=== PATIENT | male | born 1995 | race American Indian/Alaskan Native ===

== ENCOUNTER 2018-03-17 13:35 | Emergency (ER) | payer OTHER ==
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
--- NOTE | 2018-03-17 22:12 | XRay Report ---
FINAL REPORT PROCEDURE: XR SPINE LUMBOSACRAL 2-3V TECHNIQUE: Lumbar spine radiographs, including AP, lateral, and lumbosacral spot views. CPT 41345 HISTORY: lower back pain COMPARISON: No prior studies are available for comparison. FINDINGS: Alignment: There is minimal dextroscoliosis. Vertebral body heights/Disk spaces: Normal. Fracture(s): None. Facets: Normal. Bone mineralization: Normal. IMPRESSION: No acute abnormality.
[2018-03-17 22:38] VITALS: BP 138/89
== END 2018-03-17 22:39 | disposition home or self-care (01) ==
LOC: ED 13:35
DX: S39.012A Strain of muscle, fascia and tendon of lower back, initial encounter (principal); S16.1XXA Strain of muscle, fascia and tendon at neck level, initial encounter; M79.662 Pain in left lower leg; V49.49XA Driver injured in collision with other motor vehicles in traffic accident, initial encounter; Y93.89 Activity, other specified; Y99.8 Other external cause status; Y92.488 Other paved roadways as the place of occurrence of the external cause
CPT/HCPCS: 72040; 72100; 99283

== ENCOUNTER 2020-05-07 03:37 | Emergency (ER) | payer OTHER ==
[2020-05-07 03:50] VITALS: BP 149/102
[2020-05-07] MEDS ORDERED: ACETAMINOPHEN 325 MG TAB PO ONE (03:51)
[2020-05-07] MEDS ORDERED: HYDROcodone/ACETAMINOPHEN 10-325MG TAB PO ONE (08:11)
[2020-05-07] MEDS ORDERED: TETANUS,DIPHTHERIA TOXOID ADULT 0.5 ML INJ IM NR (08:11)
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
== END 2020-05-07 10:35 | disposition home or self-care (01) ==
LOC: ED 03:37
DX: S01.511A Laceration without foreign body of lip, initial encounter (principal); R68.84 Jaw pain; Z79.1 Long term (current) use of non-steroidal anti-inflammatories (NSAID); Z79.2 Long term (current) use of antibiotics; Z79.899 Other long term (current) drug therapy; Y04.2XXA Assault by strike against or bumped into by another person, initial encounter; Y93.89 Activity, other specified; Y92.89 Other specified places as the place of occurrence of the external cause; Y99.8 Other external cause status
CPT/HCPCS: 70110; 90471; 90714